=== PATIENT | male | born 2000 | race African-American/Black ===

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

== ENCOUNTER 2022-06-11 20:24 | Emergency (ER) | payer OTHER ==
[2022-06-11 20:45] VITALS: BP 116/73; PULSE 90; RESP 20; TEMP 98; BMI 19.3
[2022-06-12 02:09] LABS: PH,URINE 5.5 (5.0-8.0); URINE APPEARANCE CLEAR; URINE BILIRUBIN 1+ (NEGATIVE); URINE COLOR DK YELLOW; URINE GLUCOSE (UA) NEGATIVE (NEGATIVE); URINE KETONE 1+ (NEGATIVE); URINE LEUK ESTERASE NEGATIVE (NEGATIVE); URINE NITRITE NEGATIVE (NEGATIVE); URINE PROTEIN TRACE (NEGATIVE); URINE UROBILINOGEN 0.2 mg/dL (0.2-1.0)
== END 2022-06-12 03:18 | disposition home or self-care (01) ==
LOC: JER 20:24
DX: N39.9 Disorder of urinary system, unspecified (principal)
CPT/HCPCS: 36415; 81003; 87077; 87086; 87491; 87591; 99283-25

== ENCOUNTER 2022-07-10 14:19 | Emergency (ER) | payer OTHER ==
[2022-07-10 14:26] VITALS: BP 129/52; PULSE 72; RESP 18; TEMP 98.7; BMI 18.6
[2022-07-10] MEDS ORDERED: IBUPROFEN 400 MG TABLET (FP) PO ONE ×2 (16:01→16:06)
== END 2022-07-10 17:32 | disposition home or self-care (01) ==
LOC: JERFT 14:19
DX: M79.641 Pain in right hand (principal); M79.642 Pain in left hand; T69.9XXA Effect of reduced temperature, unspecified, initial encounter
CPT/HCPCS: 99283-25

== ENCOUNTER 2022-07-11 03:36 | Emergency (ER) | payer OTHER ==
[2022-07-11 03:43] VITALS: BP 108/64; PULSE 78; RESP 20; TEMP 97.4; BMI 18.4
== END 2022-07-11 05:00 | disposition home or self-care (01) ==
LOC: JER 03:36
DX: M79.644 Pain in right finger(s) (principal); M79.645 Pain in left finger(s)
CPT/HCPCS: 99281-25

== ENCOUNTER 2023-04-17 20:23 | Emergency (ER) | payer OTHER ==
[2023-04-17 21:25] VITALS: BP 117/69; PULSE 68; RESP 18; TEMP 98.3; BMI 19.5
== END 2023-04-17 22:30 | disposition home or self-care (01) ==
LOC: JERFT 20:23 → JER 20:23 → JERFT 22:30
DX: H60.92 Unspecified otitis externa, left ear (principal)
CPT/HCPCS: 99283-25

== ENCOUNTER 2023-08-24 13:28 | Emergency (ER) | payer OTHER ==
[2023-08-24 13:33] VITALS: BP 108/64; PULSE 101; RESP 18; TEMP 97.8; BMI 20.3
[2023-08-24] MEDS ORDERED: ONDANSETRON 4 MG/2 ML VIAL ONE (14:02)
[2023-08-24] MEDS ORDERED: ACETAMINOPHEN INJECTION 100 ML IVPB ONE (14:02)
[2023-08-24 14:12] LABS: BASO % 0.3 % (0-2.0); HEMOGLOBIN 15.6 GM/dL (11.7-16.9); LYMPH % 5.6 % (8-40); MCH 29.6 pg (25.7-33.7); MEAN PLT VOLUME 8.9 fl (7.5-11.1); MONO % 6.1 % (3.8-10.2); PLATELET COUNT 191 10^3/uL (134-434); RBC 5.29 M/mm3 (4.00-5.60); RDW 13.4 % (11.9-15.9); WHITE BLOOD COUNT 7.4 K/mm3 (4.0-10.0)
[2023-08-24] MEDS: ACETAMINOPHEN 1000 MG/100 ML BAG IVPB ONE (14:12)
[2023-08-24] MEDS: LACTATED RINGERS SOLUTION 1000 ML INFUS.BAG IV ONE (14:12)
[2023-08-24] MEDS: ONDANSETRON 4 MG/2 ML VIAL IVPUSH ONE (14:12)
[2023-08-24 14:35] LABS: POTASSIUM 4.1 mmol/L (3.5-5.1)
[2023-08-24 14:37] LABS: ALBUMIN 4.6 g/dl (3.4-5.0); CALCIUM 10.2 mg/dL (8.5-10.1)
[2023-08-24 14:38] LABS: MAGNESIUM 1.5 mg/dL (1.8-2.4)
[2023-08-24 14:41] LABS: CREATININE 1.1 mg/dL (0.55-1.3)
[2023-08-24 14:42] LABS: TOT PROT 8.2 g/dl (6.4-8.2)
[2023-08-24] MEDS ORDERED: MAGNESIUM SULF 50% (8.12 MEQ/2 ML-1 GM VIAL) IVPB ONE (15:02)
[2023-08-24] MEDS ORDERED: MAGNESIUM SULFATE IN WATER 2 GM/50 ML IVPB IVPB ONE (15:40)
== END 2023-08-24 17:02 | disposition home or self-care (01) ==
LOC: JER 13:28
PROC: 3E033NZ Introduction of Analgesics, Hypnotics, Sedatives into Peripheral Vein, Percutaneous Approach (ICD-10-PCS; principal; 2023-08-24)
PROC: 3E033GC Introduction of Other Therapeutic Substance into Peripheral Vein, Percutaneous Approach (ICD-10-PCS; 2023-08-24)
DX: K52.9 Noninfective gastroenteritis and colitis, unspecified (principal); R10.30 Lower abdominal pain, unspecified; R00.0 Tachycardia, unspecified; R11.2 Nausea with vomiting, unspecified; Z20.822 Contact with and (suspected) exposure to COVID-19
CPT/HCPCS: 0241U-QW; 36415; 80053; 83690; 83735; 85025; 99284-25; J0131

== ENCOUNTER 2024-11-15 07:04 | Emergency (ER) | payer OTHER ==
[2024-11-15] MEDS ORDERED: ALBUTEROL SO4 2.5/IPRATROPIUM 0.5 INH SOL 3 ML VIAL.NEB. NEB ONE (07:26)
[2024-11-15] MEDS ORDERED: DEXAMETHASONE SOD PHOSPHATE 10 MG/1 ML VIAL ONE (07:26)
[2024-11-15 07:33] VITALS: RESP 18; TEMP 98.7; BMI 19.8
[2024-11-15] MEDS: ALBUTEROL SO4 2.5/IPRATROPIUM 0.5 INH SOL 3 ML VIAL.NEB. NEB ONE (07:33)
[2024-11-15] MEDS: DEXAMETHASONE 4 MG TABLET (FP) PO ONE (07:33)
[2024-11-15 09:31] VITALS: BP 116/67; PULSE 92
== END 2024-11-15 09:34 | disposition home or self-care (01) ==
LOC: FER 07:04
PROC: 3E0F7GC Introduction of Other Therapeutic Substance into Respiratory Tract, Via Natural or Artificial Opening (ICD-10-PCS; principal; 2024-11-15)
DX: J45.901 Unspecified asthma with (acute) exacerbation (principal); R06.02 Shortness of breath; R05.9 Cough, unspecified
CPT/HCPCS: 0241U-QW; 99283-25